=== PATIENT | male | born 2000 | race Two or more races ===

== ENCOUNTER 2020-10-16 20:17 | Emergency (ER) | payer SELFPAY ==
[~2020-10-16] VITALS: Ht 177.8 cm; Wt 79.4 kg
[2020-10-16 20:21] VITALS: BP 116/74
== END 2020-10-17 01:16 | disposition left against medical advice (07) ==
LOC: ER 20:22
DX: M25.572 Pain in left ankle and joints of left foot (principal); Z53.21 Procedure and treatment not carried out due to patient leaving prior to being seen by health care provider
CPT/HCPCS: 73610; 73630